=== PATIENT | female | born 1995 | race Caucasian/White ===

== ENCOUNTER 2016-07-28 23:12 | Emergency (ER) | payer BC ==
[2016-07-29] MEDS ORDERED: PROCHLORPERAZINE INJ 5 MG/ML 2 ML VIAL IV ONE (02:25)
[2016-07-29] MEDS ORDERED: diPHENhydraMINE IV* 50 MG/ML 1 ml VIAL (BENADRYL) IV ONE (02:25)
[2016-07-29] MEDS ORDERED: Ketorolac INJ* 30 MG/ML 1 ML VIAL IV PUSH ONE (02:25)
[2016-07-29] MEDS ORDERED: NS 0.9% 1000 ML* 1,000 ML IV ONE (02:26)
[2016-07-29 04:17] VITALS: BP 107/65
--- NOTE | 2016-07-29 15:24 | ED ---
Headache - HPI Summary HPI Summary: Patient is a 21 year old female presenting to the Ed with chief complaint of migraine headache that has been constant for 2 days. She notes to a long history of migraine headaches which she takes Imitrex for Relief. She has associated nausea, vomiting and headache was without aura. Headache is primarily posterior occipital area and radiates to the frontal area with associated location behind the eyes. She has been seen in the emergency room before for a similar complaint, treated with Toradol, Compazine, Benadryl with relief. She is requesting the same medications today for relief and prefers to also have fluids as she notes that she is also dehydrated. She has no allergies , takes no medications other than the occasional Imitrex for migraines. She is followed by a neurologist in her home state. 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 - History Of Current Complaint Chief Complaint: EDHeadache Stated Complaint: MIGRAINE Time Seen by Provider: 07/29/16 01:10 Hx Obtained From: Patient Onset/Duration: Gradual Onset, Started hours ago Initially Headache Was: Initial Pain Scale(0-10)= - 8 Currently Pain Is: Current Pain Scale(0-10)= - 7 Timing: Constant Character: Pressure, Migraine Location of Headache: Diffuse Aggravating Factor: Bright Lights Allevating Factors: Medication Associated Signs And Symptoms: Nausea, Vomiting Related History: Similar Episode/DX As: - previous migraine symptoms - Risk Factors SAH Risk Factors: Negative Meningitis Risk Factors: Negative SDH Risk Factors: Negative Temporal Arteritis Risk Factors: Female, - Allergies/Home Medications Allergies/Adverse Reactions: Allergies Allergy/AdvReac Type Severity Reaction Status Date / Time No Known Allergies Allergy Verified 12/12/15 07:44 PMH/Surg Hx/FS Hx/Imm Hx Previously Healthy: Yes Neurological History: Reports: Hx Migraine - Immunization History Hx Pertussis Vaccination: No Immunizations Up to Date: Yes Infectious Disease History: No Infectious Disease History: Denies: Traveled Outside the [place] in Last 30 Days - Social History Occupation: Unemployed Lives: With Family Alcohol Use: None Hx Substance Use: No Substance Use Type: Reports: None Hx Tobacco Use: No Smoking Status (MU): Never Smoked Tobacco Review of Systems Constitutional: Negative Positive: Photophobia ENT: Negative Cardiovascular: Negative Respiratory: Negative Positive: Vomiting, Nausea Positive: no symptoms reported, see HPI Musculoskeletal: Negative Positive: Headache Psychological: Normal All Other Systems Reviewed And Are Negative: Yes Physical Exam Triage Information Reviewed: Yes Vital Signs On Initial Exam: Initial Vitals Temp Pulse Resp BP Pulse Ox 97.3 F 89 18 102/78 98 07/28/16 23:34 07/28/16 23:34 07/28/16 23:34 07/28/16 23:34 07/28/16 23:34 Vital Signs Reviewed: Yes Appearance: Positive: Well-Appearing, Well-Nourished Skin: Positive: Warm, Skin Color Reflects Adequate Perfusion Eyes: Positive: EOMI, JANE, Conjunctiva Clear Neck: Positive: Supple, No Lymphadenopathy Respiratory/Lung Sounds: Positive: Clear to Auscultation, Breath Sounds Present Cardiovascular: Positive: RRR Musculoskeletal: Positive: Normal, Strength/ROM Intact Neurological: Positive: Sensory/Motor Intact, Alert, Oriented to Person Place, Time, Speech Normal Psychiatric: Positive: Normal AVPU Assessment: Alert - [place] Coma Scale Coma Scale Total: 15 Diagnostics - Vital Signs Vital Signs Temp Pulse Resp BP Pulse Ox 07/29/16 04:16 98.9 F 67 16 107/65 07/29/16 01:33 97.3 F 89 18 102/78 100 07/28/16 23:34 97.3 F 89 18 102/78 98 - Laboratory Lab Statement: Any lab studies that have been ordered have been reviewed, and results considered in the medical decision making process. Headache Course/Dx - Course Course Of Treatment: Patient treated with Troadol, Benadryl and Compazine with 1 L fluids. No labs drawn. Patient OK for discharge and will follow up as needed. - Diagnoses Differential Diagnosis/HQI/PQRI: Epidural Hematoma, Subdural Hematoma, Migraine Provider Diagnoses: Migraine Discharge - Discharge Plan Condition: Stable Disposition: HOME Patient Education Materials: Migraine Headache (ED) Referrals: No Primary Care Phys,NOPCP [Primary Care Provider] - Additional Instructions: Ibuprofen 600mg, compazine 10mg and benadryl 25mg at first onset of RAMOS if symptoms are not improved with imitrex. Drink plenty of water.
== END 2016-07-29 04:16 | disposition home or self-care (01) ==
LOC: ED 23:12
DX: G43.909 Migraine, unspecified, not intractable, without status migrainosus (principal); R11.2 Nausea with vomiting, unspecified; H53.149 Visual discomfort, unspecified
CPT/HCPCS: 96374; 96375; 99283; J0780; J1200; J1885